=== PATIENT | male | born 1975 | race Caucasian/White ===

== ENCOUNTER 2018-01-06 13:49 | Emergency (ER) | payer MEDICARE ==
[~2018-01-06] VITALS: Ht 182.9 cm; Wt 102.0 kg
[2018-01-06 14:07] VITALS: BP 143/73; PULSE 90; RESP 17; TEMP 98; O2SAT 100
[2018-01-06] MEDS ORDERED: DEPA500T3 PO (14:30)
[2018-01-06] MEDS ORDERED: LAMO100 PO (14:30)
[2018-01-06] MEDS ORDERED: CHLO25TA5 (14:30)
[2018-01-06 15:19] LABS: AUTOMATED NEUTROPHIL # 6.2 TH/MM3 (1.8-7.7); BASOPHIL % 0.5 % (0.0-2.0); EOSINOPHIL # 0.1 TH/MM3 (0-0.4); EOSINOPHIL % 0.9 % (0.0-4.0); HEMOGLOBIN 16.2 GM/DL (13.0-17.0); LYMPH % 25.2 % (9.0-44.0); LYMPHOCYTE # 2.3 TH/MM3 (1.0-4.8); MEAN CORPUSCULAR HGB CONC 35.2 % (32.0-36.0); MEAN PLATELET VOLUME 10.9 FL (7.0-11.0); MONO % 6.3 % (0.0-8.0); MONOCYTE # 0.6 TH/MM3 (0-0.9); NEUT % 67.1 % (16.0-70.0); PLATELET COUNT 148 TH/MM3 (150-450); RED BLOOD COUNT 5.23 MIL/MM3 (4.50-5.90); RED CELL DISTRIBUTION WIDTH 13.2 % (11.6-17.2); WHITE BLOOD COUNT 9.3 TH/MM3 (4.0-11.0)
[2018-01-06 15:25] LABS: ALBUMIN 3.8 GM/DL (3.4-5.0); ALKALINE PHOSPHATASE 65 U/L (45-117); ALT (GPT) 49 U/L (12-78); AST (GOT) 40 U/L (15-37); BLOOD UREA NITROGEN 10 MG/DL (7-18); CALCIUM 8.7 MG/DL (8.5-10.1); CHLORIDE 106 MEQ/L (98-107); CREATININE 1.13 MG/DL (0.60-1.30); GLOMERULAR FILTRATION RATE 70 ML/MIN (>89); GLUCOSE,RANDOM 92 MG/DL (74-106); SODIUM (NA) 142 MEQ/L (136-145); TOTAL BILIRUBIN ADULT 0.5 MG/DL (0.2-1.0); TOTAL PROTEIN 7.1 GM/DL (6.4-8.2)
[2018-01-06 15:26] LABS: ACETAMINOPHEN LESS THAN 2.0 MCG/ML (10.0-30.0)
--- NOTE | 2018-01-06 15:38 | PD ---
HPI Chief Complaint: Psychiatric Symptoms Time Seen by Provider: 14:29 Travel History International Travel<30 days: No Contact w/Intl Traveler<30days: No Traveled to known affect area: No History of Present Illness HPI Patient is a 42 year old male who comes in after a suicide attempt. He has history of Bipolar disorder and suicide attempts in the past. He says he took his regular medications last night as well as 7 or 8 10mg Valiums and drank 3 hard apple ciders in the hope he would not wake up in the morning. He says he told his what happened and she brought him in. He denies any medical complaints at this time. Severity is mild to moderate. PFSH Past Medical History Bipolar Disorder: Yes Tetanus Vaccination: > 5 Years Influenza Vaccination: No Past Surgical History Eye Surgery: Yes (left eyelid) Social History Alcohol Use: Yes (rarely) Tobacco Use: Yes (1/2 ppd) Substance Use: Yes (marijuana daily ) Allergies-Medications (Allergen,Severity, Reaction): Coded Allergies: No Known Allergies (Unverified , 01/06/18) Reported Meds & Prescriptions Reported Meds & Active Scripts Active Reported Depakote ER (Divalproex Sodium) 500 Mg Greg 1,000 Mg PO DAILY Lamictal (Lamotrigine) 100 Mg Tab 100 Mg PO BID Chlorpromazine HCl 25 Mg Tab Review of Systems Except as stated in HPI: all other systems reviewed are Neg General / Constitutional: No: Fever, Chills HENT: No: Headaches, Lightheadedness Cardiovascular: No: Chest Pain or Discomfort Respiratory: No: Shortness of Breath Gastrointestinal: No: Nausea, Vomiting Genitourinary: No: Dysuria Musculoskeletal: No: Myalgias, Edema Skin: No Rash, No Change in Pigmentation Neurologic: No: Weakness, Dizziness Psychiatric: Positive: Depression, Suicidal Ideations Physical Exam Narrative GENERAL: Awake and alert, in no acute distress. SKIN: Focused skin assessment warm/dry. HEAD: Atraumatic. Normocephalic. EYES: Pupils equal and round. No scleral icterus. EOMI. ENT: Mucous membranes pink and moist. NECK: Trachea midline. No JVD. CARDIOVASCULAR: Regular rate and rhythm. No murmur appreciated. RESPIRATORY: No accessory muscle use. Clear to auscultation. Breath sounds equal bilaterally. GASTROINTESTINAL: Abdomen soft, non-tender, nondistended. MUSCULOSKELETAL: No obvious deformities. No clubbing. No cyanosis. No edema. NEUROLOGICAL: Awake and alert. No obvious cranial nerve deficits. Motor grossly within normal limits. Normal speech. PSYCHIATRIC: Appropriate mood and affect; insight and judgment normal. Data Data Last Documented VS Vital Signs Date Time Temp Pulse Resp B/P (MAP) Pulse Ox O2 Delivery O2 Flow Rate FiO2 01/06/18 14:07 98.0 90 17 143/73 (96) 100 Orders Orders Complete Blood Count With Diff (01/06/18 14:38) Comprehensive Metabolic Panel (01/06/18 14:38) Psych Screen (01/06/18 14:38) Drug Screen, Random Urine (01/06/18 14:38) Alcohol (Ethanol) (01/06/18 14:38) Salicylates (Aspirin) (01/06/18 14:38) Tylenol (Acetaminophen) (01/06/18 14:38) Labs Laboratory Tests Test 01/06/18 14:50 White Blood Count 9.3 TH/MM3 Red Blood Count 5.23 MIL/MM3 Hemoglobin 16.2 GM/DL Hematocrit 46.0 % Mean Corpuscular Volume 88.0 FL Mean Corpuscular Hemoglobin 31.0 PG Mean Corpuscular Hemoglobin Concent 35.2 % Red Cell Distribution Width 13.2 % Platelet Count 148 TH/MM3 Mean Platelet Volume 10.9 FL Neutrophils (%) (Auto) 67.1 % Lymphocytes (%) (Auto) 25.2 % Monocytes (%) (Auto) 6.3 % Eosinophils (%) (Auto) 0.9 % Basophils (%) (Auto) 0.5 % Neutrophils # (Auto) 6.2 TH/MM3 Lymphocytes # (Auto) 2.3 TH/MM3 Monocytes # (Auto) 0.6 TH/MM3 Eosinophils # (Auto) 0.1 TH/MM3 Basophils # (Auto) 0.0 TH/MM3 CBC Comment DIFF FINAL Differential Comment Blood Urea Nitrogen 10 MG/DL Creatinine 1.13 MG/DL Random Glucose 92 MG/DL Total Protein 7.1 GM/DL Albumin 3.8 GM/DL Calcium Level 8.7 MG/DL Alkaline Phosphatase 65 U/L Aspartate Amino Transf (AST/SGOT) 40 U/L Alanine Aminotransferase (ALT/SGPT) 49 U/L Total Bilirubin 0.5 MG/DL Sodium Level 142 MEQ/L Potassium Level 4.2 MEQ/L Chloride Level 106 MEQ/L Carbon Dioxide Level 29.0 MEQ/L Anion Gap 7 MEQ/L Estimat Glomerular Filtration Rate 70 ML/MIN Salicylates Level 2.7 MG/DL Urine Opiates Screen NEG Acetaminophen Level LESS THAN 2.0 MCG/ML Urine Barbiturates Screen NEG Urine Amphetamines Screen NEG Urine Benzodiazepines Screen POS Urine Cocaine Screen NEG Urine Cannabinoids Screen POS Ethyl Alcohol Level LESS THAN 3 MG/DL MDM Medical Decision Making Medical Screen Exam Complete: Yes Emergency Medical Condition: Yes Differential Diagnosis suicide attempt vs intoxication vs psychosis Narrative Course Patient is a 42-year-old male who comes in after an alleged suicide attempt. He says that he took 7 or 8 Valium last night in an attempt to not wake up this morning. He has no medical complaints at this time. He is awake and alert, has no acute findings on exam. Labs sent show no acute abnormalities. Patient medically cleared for psychiatric evaluation. Patient was placed under Headley act. Diagnosis Primary Impression: Intentional benzodiazepine overdose Qualified Codes: T42.4X2A - Poisoning by benzodiazepines, intentional self- harm, initial encounter Sivan Arrington MD Jan 06, 2018 15:38
[2018-01-06 18:01] VITALS: BP 132/72; PULSE 80; RESP 18; O2SAT 98
[2018-01-06] MEDS ORDERED: DIVALPROEX SODIUM E.R. 500 MG TAB PO ONE (20:30)
[2018-01-06] MEDS ORDERED: lamoTRIgine 100 MG TAB PO ONE (20:30)
[2018-01-07] MEDS ORDERED: chlorproMAZINE HCL 25 MG TAB PO ONE (11:45)
[2018-01-07] MEDS ORDERED: lamoTRIgine 100 MG TAB PO ONE (11:45)
--- NOTE | 2018-01-07 14:11 | PD.PSY.CON ---
Provisional Diagnosis Admission Date Milton I. Adjustment disorder with depressed mood, history of bipolar disorder, anxiety, cannabis use disorder Milton II. Deferred Milton III. No significant medical his History of Present Illness Service Psychiatry Consult Requested By ER Reason for Consult Suicidal attempt Primary Care Physician DO SENDY Mccullough The patient is a 42 year-old man, domiciled with his and 40 years old daughter, unemployed, disabled, with self-reported psychiatric history of bipolar disorder, anxiety, 2 prior psychiatric hospitalizations, no sign attempts, outpatient care in [facility], he is on Thorazine 25 mg , Depakote thousand milligrams, lamotrigine 100 mg, no significant medical history, who comes in after a suicide attempt. He says he took his regular medications last night as well as 7 or 8 10mg Valiums and drank 3 hard apple ciders in the hope he would not wake up in the morning. He says he told his what happened and she brought him in. Patient was seen for psychiatric reevaluation today, he was calm, cooperative. He is pleasant he took no with intention to kill himself, but to go to sleep and forget his frustration. The patient says that he has been frustrated because he does not work and his has been meeting with him. Patient says that he has a 14 years old daughter and many reasons to live for. Patient reports compliant with psychotropics, no significant side effects, good response. He denies suicidal and was ideation, he denies visual and auditory hallucinations. We got collateral information from his , who added that she would be very happy to come and seed cone picker her and create a safe environment at home for him . Review of Systems Constitutional: DENIES: Diaphoretic episodes, Fatigue, Fever, Weight gain, Weight loss, Chills, Dizziness, Change in appetite, Night Sweats Endocrine: DENIES: Heat/cold intolerance, Polydipsia, Polyuria, Polyphagia Eyes: DENIES: Blurred vision, Diplopia, Eye inflammation, Eye pain, Vision loss , Photosensitivity, Double Vision Ears, nose, mouth, throat: DENIES: Tinnitus, Hearing loss, Vertigo, Nasal discharge, Oral lesions, Throat pain, Hoarseness, Ear Pain, Running Nose, Epistaxis, Sinus Pain, Toothache, Odynophagia Respiratory: DENIES: Apneas, Cough, Snoring, Wheezing, Hemoptysis, Sputum production, Shortness of breath Cardiovascular: DENIES: Chest pain, Palpitations, Syncope, Dyspnea on Exertion , PND, Lower Extremity Edema, Orthopnea, Claudication Gastrointestinal: DENIES: Abdominal pain, Black stools, Bloody stools, Constipation, Diarrhea, Nausea, Vomiting, Difficulty Swallowing, Anorexia Genitourinary: DENIES: Sexual dysfunction, Urinary frequency, Urinary incontinence, Urgency, Hematuria, Dysuria, Nocturia, Penile Discharge, Testicular Pain, Testicular Swelling Musculoskeletal: DENIES: Joint pain, Muscle aches, Stiffness, Joint Swelling, Back pain, Neck pain Integumentary: DENIES: Abnormal pigmentation, Nail changes, Pruritus, Rash Hematologic/lymphatic: DENIES: Bruising, Lymphadenopathy Immunologic/allergic: DENIES: Eczema, Urticaria Neurologic: DENIES: Abnormal gait, Headache, Localized weakness, Paresthesias, Seizures, Speech Problems, Tremor, Poor Balance Psychiatric: DENIES: Anxiety, Confusion, Mood changes, Depression, Hallucinations, Agitation, Suicidal Ideation, Homicidal Ideation, Delusions Past Family Social History Coded Allergies: No Known Allergies (Unverified , 01/06/18) Reported Medications Divalproex ER (Depakote ER) 500 Mg Greg, 1000 MG PO DAILY for Control Seizures , #60 TAB 0 Refills 01/06/18 Lamotrigine (Lamictal) 100 Mg Tab, 100 MG PO BID for Control Seizures, #60 TAB 0 Refills 01/06/18 Chlorpromazine HCl (Chlorpromazine HCl) 25 Mg Tab 01/06/18 Family Psych History No family psychiatric history Social History The patient was born and raised in [place], he lives in [place] with his , he has a 14 years old daughter, unemployed, on SSI, highest level of education is a bachelor Patient's Strengths (min. 2) Family support Physical Exam Vital Signs Vital Signs Date Time Temp Pulse Resp B/P (MAP) Pulse Ox O2 Delivery O2 Flow Rate FiO2 01/07/18 12:32 01/06/18 18:01 80 18 98 Room Air 01/06/18 14:07 98.0 Lab Results Test 01/06/18 14:50 White Blood Count 9.3 TH/MM3 Red Blood Count 5.23 MIL/MM3 Hemoglobin 16.2 GM/DL Hematocrit 46.0 % Mean Corpuscular Volume 88.0 FL Mean Corpuscular Hemoglobin 31.0 PG Mean Corpuscular Hemoglobin Concent 35.2 % Red Cell Distribution Width 13.2 % Platelet Count 148 TH/MM3 Mean Platelet Volume 10.9 FL Neutrophils (%) (Auto) 67.1 % Lymphocytes (%) (Auto) 25.2 % Monocytes (%) (Auto) 6.3 % Eosinophils (%) (Auto) 0.9 % Basophils (%) (Auto) 0.5 % Neutrophils # (Auto) 6.2 TH/MM3 Lymphocytes # (Auto) 2.3 TH/MM3 Monocytes # (Auto) 0.6 TH/MM3 Eosinophils # (Auto) 0.1 TH/MM3 Basophils # (Auto) 0.0 TH/MM3 CBC Comment DIFF FINAL Differential Comment Blood Urea Nitrogen 10 MG/DL Creatinine 1.13 MG/DL Random Glucose 92 MG/DL Total Protein 7.1 GM/DL Albumin 3.8 GM/DL Calcium Level 8.7 MG/DL Alkaline Phosphatase 65 U/L Aspartate Amino Transf (AST/SGOT) 40 U/L Alanine Aminotransferase (ALT/SGPT) 49 U/L Total Bilirubin 0.5 MG/DL Sodium Level 142 MEQ/L Potassium Level 4.2 MEQ/L Chloride Level 106 MEQ/L Carbon Dioxide Level 29.0 MEQ/L Anion Gap 7 MEQ/L Estimat Glomerular Filtration Rate 70 ML/MIN Salicylates Level 2.7 MG/DL Urine Opiates Screen NEG Acetaminophen Level LESS THAN 2.0 MCG/ML Urine Barbiturates Screen NEG Valproic Acid (Depakene) Level 69 MCG/ML Urine Amphetamines Screen NEG Urine Benzodiazepines Screen POS Urine Cocaine Screen NEG Urine Cannabinoids Screen POS Ethyl Alcohol Level LESS THAN 3 MG/DL Mental Status Examination Appearance: Appropriate Consciousness: Alert Orientation: x4 Motor Activity: Normal gait Speech: Unremarkable Language: Adequate Fund of Knowledge: Adequate Attention and Concentration: Adequate Memory: Unremarkable Mood: Appropriate Affect: Appropriate Thought Process & Associations: Intact Thought Content: Appropriate Hallucination Type: None Delusion Type: None Suicidal Ideation: No Suicidal Plan: No Suicidal Intention: No Homicidal Ideation: No Homicidal Plan: No Homicidal Intention: No Insight: Adequate Judgment: Adequate Assessment & Plan Problem List: (1) Adjustment disorder with depressed mood ICD Codes: F43.21 - Adjustment disorder with depressed mood Assessment & Plan: On psychiatric evaluation today the patient denies suicidal and homicidal ideation, he denies visual and auditory hallucinations. The patient reported that he overdosed with 7 pills of Valium after an argument with his , but at this moment he denies that that overdose was with suicidal intentions. We have spoken with his and she agrees that the patient is not a danger to self and others, she has created a safe environment for him, and she agrees with the discharge. The patient does not meet criteria for involuntary psychiatric admission at this moment. Headley act would be lifted Assessment & Plan Estimated LOS: days Juan Diego Yeung MD Jan 07, 2018 14:11
== END 2018-01-07 12:33 | disposition home or self-care (01) ==
LOC: NEPD 13:49 → NEPJ 01-07 12:33
DX: T42.4X2A Poisoning by benzodiazepines, intentional self-harm, initial encounter (principal); F31.9 Bipolar disorder, unspecified; F43.21 Adjustment disorder with depressed mood; F12.90 Cannabis use, unspecified, uncomplicated; F41.9 Anxiety disorder, unspecified; F17.210 Nicotine dependence, cigarettes, uncomplicated
CPT/HCPCS: 80053; 80164; 80307; 85025; 99283